=== PATIENT | female | born 1985 | race Caucasian/White ===

== ENCOUNTER 2017-03-22 08:59 | Day surgery (SDC) | payer BC, OTHER ==
[~2017-03-22 08:59] MED LIST: RINGERS SOLUTION,LACTATED 1,000 ML IV PRN
--- OUTSIDE RECORDS SUMMARY | 2017-03-22 09:08 | XMS REPORT | Continuity of Care Document ---
:1985 Author Organization [employer] [place] [address] Care Team Providers Name Role Phone Ezequiel Paz Primary Care Provider [phone] Source Comments This disclosure is being made pursuant to the [employer] program and maynot contain all information available regarding this patient.[facility] Active Allergies and Adverse Reactions No Known Allergies Current Medications Be aware that medications may not be up to date as of this document. Alwaysverify current medications with the patient. Prescription Sig. Disp. Refills Start Date End Date Status lansoprazole (PREVACID) Take 30 mg by mouth Active 30 MG capsule daily. ALPRAZolam (XANAX) 0.5 MG Take 0.5 mg by Active tablet mouth nightly as needed for Sleep. Active Problems Not on file Most Recent Encounters Date Type Specialty Providers Description 03/14/2017 Orders Only Provider, Not In System 03/08/2017 Office Visit Family Medicine Ezequiel Paz, Encounter for CONTEMPORARY OR MODERN DANCER pre-operative examination Immunizations Name Dates Previously Given Next Due Influenza, Unspecified 09/07/2016 Tdap 03/08/2006 Social History Tobacco Use Types Packs/Day Years Used Date Current Every Day Smoker 0.5 Smokeless Tobacco: Never Used Tobacco Cessation:Ready to Quit: No Comments: Alcohol Use Drinks/Week oz/Week Comments Yes rarely Last Filed Vital Signs Vital Sign Reading Time Taken Blood Pressure 136/78 03/08/2017 10:45 AM CDT Pulse 103 03/08/2017 10:45 AM CDT Temperature 37 C (98.6 F) 03/08/2017 10:45 AM CDT Respiratory Rate 15 03/08/2017 10:45 AM CDT Height 1.702 m (5' 7") 03/08/2017 10:45 AM CDT Weight 84.369 kg (186 lb) 03/08/2017 10:55 AM CDT Body Mass Index 29.12 03/08/2017 10:55 AM CDT Oxygen Saturation 97% 03/08/2017 10:45 AM CDT Plan of Care Health Maintenance Due Date Last Done Comments Pneumococcal Medium Risk 19-64 yo (1 of 1 - PPSV23) 2002 Pap Smear 2004 Tetanus/Pertussis (2 - Td) 03/08/2016 03/08/2006 Influenza Immunization Completed 09/07/2016 Results from Last 3 Months US PELVIC TRANSABDOMINAL LIMITED (NON-OB) (02/10/2017)
[2017-03-22] MEDS ORDERED: RINGERS SOLUTION,LACTATED 1,000 ML IV ONE (09:45)
[2017-03-22] MEDS ORDERED: LIDOCAINE HCL/EPINEPHRINE 50 ML VIAL IJ ONE (10:10)
--- NOTE | 2017-03-22 10:33 | OR ---
Operative Report - Dictated Report Narrative: DATE OF PROCEDURE: 03/22/2017 INDICATION: 31-year-old with thickened endometrium on ultrasound, dysmenorrhea and menometrorrhagia PREOPERATIVE DIAGNOSIS: Dysmenorrhea, Menometrorrhagia POSTOPERATIVE DIAGNOSIS: Same PROCEDURE: Hysteroscopy, D&C SURGEON: Theodore Stein D.O. DRIVER'S LICENSE EXAMINER: None ANESTHESIA: IV sedation, Paracervical block ESTIMATED BLOOD LOSS: minimal URINE OUTPUT: not recorded FLUID REPLACEMENT: 350 mL FINDINGS: 9 week size uterus with sloughing endometrium consistent with patient' s history of starting menses SPECIMEN(S): Endometrial curettings TECHNIQUE: The patient was taken to the operating room and placed in dorsal lithotomy position after adequate IV sedation was obtained. After sterile prep and drape, the anterior lip of the cervix was grasped with a long Allis clamp. A paracervical block was given using a 1% lidocaine with epinephrine solution. The uterus sounded to 9 cm. The 5 mm hysteroscope was inserted into the uterine cavity with findings as noted above. Using the curet, the entire uterine cavity was curettaged. The hysteroscope was reinserted noting thorough sampling of the entire uterine cavity. Sponge, lap, instrument, needle count correct x 2. DISPOSITION: The patient was transferred to the post anesthesia care unit in good condition.
[2017-03-22 11:56] VITALS: BP 160/95
== END 2017-03-22 09:00 | disposition home or self-care (01) ==
LOC: AMB 08:59
PROVIDERS: ATTEND Obstetrics & Gynecology
PROC: 0UDB8ZX Extraction of Endometrium, Via Natural or Artificial Opening Endoscopic, Diagnostic (ICD-10-PCS; principal; 2017-03-22 10:30)
DX: N84.0 Polyp of corpus uteri (principal); N92.0 Excessive and frequent menstruation with regular cycle; N94.6 Dysmenorrhea, unspecified; Z68.29 Body mass index [BMI] 29.0-29.9, adult